=== PATIENT | male | born 1970 | race Two or more races ===

== ENCOUNTER 2021-08-30 09:19 | Day surgery (SDC) | payer BC, OTHER ==
[2021-08-27 10:47] VITALS: BMI 32.9
[2021-08-30 12:19] VITALS: BP 143/70; PULSE 72; TEMP 98.2
== END 2021-08-30 12:25 | disposition home or self-care (01) ==
LOC: FASU-ENDO 09:19
PROVIDERS: ATTEND Internal Medicine Gastroenterology
PROC: 0DBN8ZX Excision of Sigmoid Colon, Via Natural or Artificial Opening Endoscopic, Diagnostic (ICD-10-PCS; principal; 2021-08-30 11:17)
DX: Z12.11 Encounter for screening for malignant neoplasm of colon (principal); D12.5 Benign neoplasm of sigmoid colon
CPT/HCPCS: 82962; 88305-TC